=== PATIENT | female | born 1960 | race Caucasian/White ===

== ENCOUNTER 2019-07-22 19:30 | Outpatient (CLI) | payer OTHER | END 2019-07-22 19:31 | disposition home or self-care (01) | LOC: SLEEPLAB 19:30 | PROVIDERS: ATTEND Internal Medicine Critical Care Medicine | DX: G47.33 Obstructive sleep apnea (adult) (pediatric) (principal); R53.83 Other fatigue | CPT/HCPCS: 95811 ==

== ENCOUNTER 2023-04-03 16:25 | Outpatient (CLI) | payer BC | END 2023-04-03 16:26 | disposition home or self-care (01) | LOC: SCSRAD 16:25 | PROVIDERS: ATTEND Physician Assistant | DX: M25.511 Pain in right shoulder (principal) ==

== ENCOUNTER 2023-08-18 09:27 | Outpatient (CLI) | payer OTHER | END 2023-08-18 09:28 | disposition home or self-care (01) | LOC: SCSRAD 09:27 | PROVIDERS: ATTEND Physician Assistant | DX: S67.10XA Crushing injury of unspecified finger(s), initial encounter (principal) ==